=== PATIENT | female | born 1940 | race Asian ===

== ENCOUNTER 2016-06-13 09:30 | Outpatient (RCR) | payer OTHER ==
[~2016-06-13 09:30] MED LIST: ACTOS30 MG PO; DIOVAN160 MG ORAL; DIURIL25 MG ORAL; GLUCOPHAGE500 MG PO; HYOSCYAMINE0.375 M1 ORAL; LIDODERM700 M1 TOPIC; LIPITOR20 MG ORAL; LOSARTAN POTASS50 MG ORAL; LOSARTAN-HCTZ1 EACH PO; NIFEDICAL XL30 MG PO; NORTRIPTYLINE H10 MG PO; SIMVASTATIN40 MG PO; TENORMIN25 MG PO; VITAMIN D400 INTLU ORAL; hycosamine SL
== END 2016-07-10 | disposition home or self-care (01) ==
LOC: PTY 09:30
PROVIDERS: ATTEND Internal Medicine
DX: M51.36 Other intervertebral disc degeneration, lumbar region (principal); M25.551 Pain in right hip; M62.81 Muscle weakness (generalized); E11.9 Type 2 diabetes mellitus without complications; Z85.038 Personal history of other malignant neoplasm of large intestine
CPT/HCPCS: 97110; 97162; G0283

== ENCOUNTER 2016-07-23 14:39 | Outpatient (RCR) | payer OTHER | END 2016-08-07 | disposition home or self-care (01) | LOC: PTY 14:39 | PROVIDERS: ATTEND Internal Medicine | DX: M51.36 Other intervertebral disc degeneration, lumbar region (principal); M25.551 Pain in right hip; R53.1 Weakness; E11.9 Type 2 diabetes mellitus without complications; Z85.038 Personal history of other malignant neoplasm of large intestine; Z88.6 Allergy status to analgesic agent; Z88.2 Allergy status to sulfonamides | CPT/HCPCS: 97110; 97140; G0283 ==

== ENCOUNTER 2016-09-25 14:36 | Outpatient (RCR) | payer OTHER | END 2016-10-07 | disposition home or self-care (01) | LOC: PTY 14:36 | PROVIDERS: ATTEND Internal Medicine | DX: M51.36 Other intervertebral disc degeneration, lumbar region (principal); M25.551 Pain in right hip | CPT/HCPCS: 97110; 97140; G0283 ==

== ENCOUNTER 2016-10-10 11:00 | Outpatient (RCR) | payer OTHER | END 2016-11-07 | disposition home or self-care (01) | LOC: PTY 11:00 | DX: M51.36 Other intervertebral disc degeneration, lumbar region (principal); M53.86 Other specified dorsopathies, lumbar region; Z88.2 Allergy status to sulfonamides; Z88.6 Allergy status to analgesic agent; M25.551 Pain in right hip | CPT/HCPCS: 97110; 97140; G0283 ==

== ENCOUNTER 2016-11-09 14:35 | Outpatient (RCR) | payer OTHER | END 2016-12-07 | disposition home or self-care (01) | LOC: PTY 14:35 | DX: M51.36 Other intervertebral disc degeneration, lumbar region (principal); M25.551 Pain in right hip | CPT/HCPCS: 97035; 97110; 97140; G0283 ==